=== PATIENT | male | born 1930 | race Caucasian/White ===

== ENCOUNTER → 2019-05-26 | Outpatient (CLI) | payer MEDICARE, OTHER ==
--- NOTE | 2019-05-26 19:21 | RADRPT ---
Echocardiogram Report Patient Name: VINAYAK SHORTPatient ID: [id number] : 1930 (89y )Study Date: 05/26/2019 10:03:17 AM Gender: MAccession #: [id number] Tech: Tr Wolff [facility] Location: EKG Ref.Physician: SU COOK Height(Cm): BSA: Weight(Kg): Quality: Technically Difficult StudyOrder Physician: SU COOK Account #: Procedures: Echocardiographic Report: Transthoracic echocardiogram with complete 2D, M-Mode, and doppler examination. Indications: Lower extremity edema/ HTN. Measurements: 2D/M Mode Doppler Measurement Value Normal Range Measurement Value Normal Range LVIDd 2D 4.6 [ 4.2 - 5.8 ] cm OMAR VTI 0.9 [ 2.0 - 4.0 ] cm2 LVIDs 2D 3.6 [ 2.5 - 4.0 ] cm AV Mean Justo 1.5 [ 70.0 - 90.0 ] cm/sec LVPWd 2D 1.6 [ 0.6 - 1.0 ] cm AV Mean PG 10.0 [ 2.0 - 4.0 ] mmHg IVSd 2D 1.6 [ 0.6 - 1.0 ] cm AV VTI 51.0 cm AoR Diam 2D 3.0 [ 2.6 - 3.4 ] cm LVOT Mean Justo 0.4 [ 60.0 - 80.0 ] cm/sec EDV 2D 96.8 [ 62.0 - 150.0 ] ml LVOT Mean PG 1.0 [ 1.0 - 3.0 ] mmHg ESV 2D 55.5 [ 21.0 - 61.0 ] ml LVOT Peak Justo 0.6 [ 70.0 - 110.0 ] cm/sec EF 2D 42.7 [ 52.0 - 72.0 ] percent LVOT Peak PG 1.0 [ 2.0 - 6.0 ] mmHg LA Dimen 2D 5.0 [ 3.0 - 4.0 ] cm LVOT VTI 14.9 [ 20.0 - 30.0 ] cm LVOT Diam 2.0 [ 2.3 - 2.9 ] cm MV E Peak Justo 0.9 [ 60.0 - 130.0 ] cm/sec MV Decel Time 335 [ 104 - 258 ] msec Lat E` Justo 0.1 [ 10.0 - 15.0 ] cm/sec Lateral E/E` 12.2 [ 1.0 - 2.0 ] ratio Med E` Justo 0.1 cm/sec TR Peak Justo 2.3 [ 100.0 - 280.0 ] cm/sec TR Peak PG 22.0 mmHg RVSP 30.0 [ 10.0 - 36.0 ] mmHg Findings: Left Ventricle: Normal left ventricular cavity size. Moderate concentric left ventricular hypertrophy. Mild global left ventricular systolic dysfunction. Ejection fraction is visually estimated at 40-45 %. Tissue Doppler/Mitral Doppler indices are consistent with restrictive physiology with markedly elevated left atrial pressure (Stage III-IV diastolic dysfunction). Right Ventricle: Normal right ventricular size. Normal right ventricular systolic function. Left Atrium: There is moderate enlargement of left atrium. Right Atrium: The right atrium is normal in size. Mitral Valve: Mild mitral leaflet calcification. Mild mitral annular calcification. Mild to moderate mitral valve regurgitation. Aortic Valve: Moderate aortic stenosis. Aortic valve Max velocity 2.34 m/sec. Max PG 21.90 mmHg. Mean PG 9.00 mmHg. Aortic valve area 0.94 cm2. Aortic cusps appear moderately calcified. Mild aortic valve regurgitation. Tricuspid Valve: Normal appearance of the tricuspid valve. The estimated Peak RVSP is 30 mmHg. There is mild tricuspid regurgitation. Pericardium: Trivial pericardial effusion. Left pleural effusion seen. Aorta: Normal aortic root. IVC: Normal size with poor respiratory collapse consistent with elevated right atrial pressure. Conclusions: Normal left ventricular cavity size. Moderate concentric left ventricular hypertrophy. Mild global left ventricular systolic dysfunction. Ejection fraction is visually estimated at 40-45 %. Tissue Doppler/Mitral Doppler indices are consistent with restrictive physiology with markedly elevated left atrial pressure (Stage III-IV diastolic dysfunction). There is moderate enlargement of left atrium. Mild mitral leaflet calcification. Mild mitral annular calcification. Mild to moderate mitral valve regurgitation. Moderate aortic stenosis. Aortic valve Max velocity 2.34 m/sec. Max PG 21.90 mmHg. Mean PG 9.00 mmHg. Aortic valve area 0.94 cm2. Aortic cusps appear moderately calcified. Mild aortic valve regurgitation. Normal appearance of the tricuspid valve. The estimated Peak RVSP is 30 mmHg. There is mild tricuspid regurgitation. Electronically Signed By: Su Cook 2019-05-26 19:20:24 PDT
== END | disposition home or self-care (01) ==
LOC: EKG 09:33
PROVIDERS: ATTEND Internal Medicine
DX: I34.0 Nonrheumatic mitral (valve) insufficiency (principal); I07.1 Rheumatic tricuspid insufficiency
CPT/HCPCS: 93306; 93970